=== PATIENT | male | born 1945 | race Caucasian/White ===

== ENCOUNTER 2019-10-31 17:19 | Inpatient (IN) ==
[2019-10-31] MEDS ORDERED: TICAGRELOR 90 MG TABLET ONE (17:20)
[2019-10-31] MEDS ORDERED: ENOXAPARIN 30 MG/0.3 ML SYRINGE ONE (17:20)
[2019-10-31] MEDS ORDERED: TICAGRELOR 90 MG TABLET PO STA (17:23)
[2019-10-31] MEDS ORDERED: ENOXAPARIN 100 MG/ML SYRINGE SUBCUT ONE (17:26)
[2019-10-31] MEDS ORDERED: ENOXAPARIN 60 MG/0.6 ML SYRINGE IV ONE (17:26)
[2019-10-31] MEDS ORDERED: ENOXAPARIN 100 MG/ML SYRINGE SUBCUT STA (17:29)
[2019-10-31] MEDS ORDERED: HYDROmorphone 2 MG/1 ML VIAL ONE (17:30)
[2019-10-31] MEDS ORDERED: MIDAZOLAM 2 MG/2 ML VIAL ONE (17:30)
[2019-10-31] MEDS ORDERED: LIDOCAINE 1% 20 ML VIAL ONE (17:30)
[2019-10-31 17:51] LABS: Basophils # 0.1 10*3/uL (0.0-0.2); Basophils % 0.3 % (0.0-0.8); Eosinophils # 0.1 10*3/uL (0.0-0.87); Eosinophils % 0.7 % (0.00-10.9); Hematocrit 45.7 VOL% (42.0-52.0); Hemoglobin 15.8 GM/DL (14.0-18.0); Immature Granulocytes % 0.6 %; Immature Granulocytes Absolute 0.08 #; Lymphocytes # 2.9 10*3/uL (1.4-4.0); Lymphocytes % 19.9 % (21.2-54.2); Mean Corpuscular HGB Conc 34.6 GM/DL (32-36); Mean Corpuscular Volume 89.3 FL (87-102); Mean Platelet Volume 10.2 FL (9.6-12.0); Neutrophils % 73.5 % (38.7-73.9); Platelet Count 253 T/CUMM (130-400); Red Blood Count 5.12 MC/CUMM (3.8-5.5); Red Cell Distribution Width 13.2 % (9.3-17.3); White Blood Count 14.5 T/CUMM (4-12)
[2019-10-31 17:57] LABS: INR 1.4; PT Patient Result 15.6 SECS (9.6-12.2); Partial Thromboplastin Time 30.6 SECS (20.8-36.0)
[2019-10-31 18:00] LABS: Calcium 9.1 MG/DL (8.5-10.1); Osmolality,Calculated 285.4 MOS/KG (273-304)
[2019-10-31] MEDS ORDERED: TIROFIBAN 5,000 MCG/100 ML PREMIX IV ONE (18:22)
[2019-10-31] MEDS ORDERED: ACETAMINOPHEN 325 MG TABLET PO PRN (18:26)
[2019-10-31] MEDS ORDERED: HYDROmorphone 2 MG/1 ML VIAL IV PRN (18:26)
[2019-10-31] MEDS ORDERED: ZALEPLON 5 MG CAPSULE PO PRN (18:26)
[2019-10-31] MEDS ORDERED: NITROGLYCERIN SL 0.4 MG TABLET SL PRN (18:26)
[2019-10-31] MEDS: TIROFIBAN 5,000 MCG/100 ML PREMIX IV SCH (18:27)
[2019-10-31] MEDS ORDERED: TIROFIBAN 5,000 MCG/100 ML PREMIX IV SCH (19:00)
[2019-10-31] MEDS ORDERED: carvediloL 6.25 MG TABLET PO SCH (21:00)
[2019-10-31] MEDS: INSULIN LISPRO 100 UNIT/ML SUBCUT SCH (21:15)
[2019-10-31] MEDS: SODIUM CHLORIDE 0.9% 1,000 ML IV SCH (21:30)
[2019-10-31] MEDS: TICAGRELOR 90 MG TABLET PO SCH (22:07)
[2019-10-31] MEDS: ROSUVASTATIN 20 MG TABLET PO SCH (22:08)
[2019-11-01] MEDS ORDERED: NITROGLYCERIN DRIP 50 MG/250 ML BOTTLE IV ONE (05:56)
[2019-11-01] MEDS ORDERED: FUROSEMIDE 40 MG/4 ML VIAL IV ONE (05:57)
[2019-11-01] MEDS ORDERED: FUROSEMIDE 40 MG/4 ML VIAL ONE (05:58)
[2019-11-01] MEDS ORDERED: NITROGLYCERIN DRIP 50 MG/250 ML BOTTLE IV PRN (05:59)
[2019-11-01 06:18] LABS: Basophils % 0.2 % (0.0-0.8); Eosinophils # 0.1 10*3/uL (0.0-0.87); Eosinophils % 0.9 % (0.00-10.9); Hematocrit 48.2 VOL% (42.0-52.0); Hemoglobin 16.1 GM/DL (14.0-18.0); Immature Granulocytes % 0.6 %; Immature Granulocytes Absolute 0.07 #; Lymphocytes # 2.5 10*3/uL (1.4-4.0); Lymphocytes % 19.8 % (21.2-54.2); Mean Corpuscular HGB Conc 33.4 GM/DL (32-36); Mean Corpuscular Volume 89.9 FL (87-102); Mean Platelet Volume 9.9 FL (9.6-12.0); Monocytes % 5.9 % (1.7-12.7); Neutrophils % 72.6 % (38.7-73.9); Platelet Count 233 T/CUMM (130-400); Red Blood Count 5.36 MC/CUMM (3.8-5.5); Red Cell Distribution Width 13.3 % (9.3-17.3); White Blood Count 12.7 T/CUMM (4-12)
[2019-11-01 07:04] LABS: CKMB % 14.4 %; Calcium 8.3 MG/DL (8.5-10.1); Osmolality,Calculated 285.1 MOS/KG (273-304)
[2019-11-01] MEDS: TIROFIBAN 5,000 MCG/100 ML PREMIX IV SCH ×2 (08:13→08:14)
[2019-11-01] MEDS: INSULIN LISPRO 100 UNIT/ML SUBCUT SCH ×4 (08:15→20:56)
[2019-11-01] MEDS: SODIUM CHLORIDE 0.9% 1,000 ML IV SCH (08:21)
[2019-11-01] MEDS: carvediloL 3.125 MG TABLET PO SCH ×2 (09:21→20:56)
[2019-11-01] MEDS: ASPIRIN EC 81 MG TABLET PO SCH (09:21)
[2019-11-01] MEDS: SACUBITRIL/VALSARTAN 49-51 MG TABLET PO SCH ×2 (09:21→20:55)
[2019-11-01] MEDS: TICAGRELOR 90 MG TABLET PO SCH ×2 (09:21→20:56)
[2019-11-01] MEDS: ROSUVASTATIN 20 MG TABLET PO SCH (09:21)
[2019-11-01] MEDS: ENOXAPARIN 40 MG/0.4 ML SYRINGE SUBCUT SCH (11:57)
[2019-11-01] MEDS: FUROSEMIDE 40 MG/4 ML VIAL IV SCH (16:41)
[2019-11-02] MEDS: INSULIN LISPRO 100 UNIT/ML SUBCUT SCH ×4 (08:10→20:16)
[2019-11-02] MEDS: FUROSEMIDE 40 MG/4 ML VIAL IV SCH ×2 (08:10→16:15)
[2019-11-02] MEDS: ROSUVASTATIN 20 MG TABLET PO SCH (09:30)
[2019-11-02] MEDS: carvediloL 3.125 MG TABLET PO SCH ×2 (09:31→20:16)
[2019-11-02] MEDS: ASPIRIN EC 81 MG TABLET PO SCH (09:31)
[2019-11-02] MEDS: SACUBITRIL/VALSARTAN 49-51 MG TABLET PO SCH ×2 (09:31→20:16)
[2019-11-02] MEDS: TICAGRELOR 90 MG TABLET PO SCH ×2 (09:31→20:16)
[2019-11-02 09:43] LABS: Basophils % 0.2 % (0.0-0.8); Eosinophils # 0.1 10*3/uL (0.0-0.87); Eosinophils % 1.4 % (0.00-10.9); Hematocrit 43.9 VOL% (42.0-52.0); Hemoglobin 15.2 GM/DL (14.0-18.0); Immature Granulocytes % 0.3 %; Immature Granulocytes Absolute 0.03 #; Lymphocytes # 1.9 10*3/uL (1.4-4.0); Lymphocytes % 21.1 % (21.2-54.2); Mean Corpuscular HGB Conc 34.6 GM/DL (32-36); Mean Corpuscular Volume 88.2 FL (87-102); Mean Platelet Volume 10.5 FL (9.6-12.0); Monocytes % 6.4 % (1.7-12.7); Neutrophils % 70.6 % (38.7-73.9); Red Blood Count 4.98 MC/CUMM (3.8-5.5); Red Cell Distribution Width 13.3 % (9.3-17.3)
[2019-11-02 09:47] LABS: Platelet Count 185 T/CUMM (130-400)
[2019-11-02 10:01] LABS: Calcium 8.1 MG/DL (8.5-10.1); Osmolality,Calculated 289.5 MOS/KG (273-304)
[2019-11-02] MEDS: ENOXAPARIN 40 MG/0.4 ML SYRINGE SUBCUT SCH (11:32)
[2019-11-02] MEDS ORDERED: metFORMIN 500 MG TABLET PO SCH (17:00)
[2019-11-02] MEDS ORDERED: POTASSIUM CHLORIDE RIDER 10 MEQ in PREMIX 1 EACH IV PRN (23:24)
[2019-11-02] MEDS ORDERED: MAGNESIUM SULF RIDER 2 GM in PREMIX 1 EACH IV PRN (23:24)
[2019-11-03 05:22] LABS: Basophils % 0.2 % (0.0-0.8); Eosinophils # 0.2 10*3/uL (0.0-0.87); Eosinophils % 2.1 % (0.00-10.9); Hematocrit 44.8 VOL% (42.0-52.0); Hemoglobin 15.4 GM/DL (14.0-18.0); Immature Granulocytes % 0.3 %; Immature Granulocytes Absolute 0.03 #; Lymphocytes # 2.8 10*3/uL (1.4-4.0); Lymphocytes % 28.5 % (21.2-54.2); Mean Corpuscular HGB Conc 34.4 GM/DL (32-36); Mean Corpuscular Volume 88.5 FL (87-102); Mean Platelet Volume 10.7 FL (9.6-12.0); Monocytes % 9.5 % (1.7-12.7); Neutrophils % 59.4 % (38.7-73.9); Platelet Count 192 T/CUMM (130-400); Red Blood Count 5.06 MC/CUMM (3.8-5.5); Red Cell Distribution Width 13.2 % (9.3-17.3); White Blood Count 9.7 T/CUMM (4-12)
[2019-11-03 05:51] LABS: Calcium 8.3 MG/DL (8.5-10.1); Osmolality,Calculated 289.3 MOS/KG (273-304)
[2019-11-03] MEDS ORDERED: BUPIVACAINE MPF 0.25% 30 ML VIAL ONE (06:51)
[2019-11-03] MEDS ORDERED: LIDOCAINE 1%/EPI INJ 20 ML VIAL ONE (06:51)
[2019-11-03] MEDS: INSULIN LISPRO 100 UNIT/ML SUBCUT SCH ×3 (07:12→16:19)
[2019-11-03] MEDS ORDERED: diphenhydrAMINE CAP 25 MG CAPSULE PO ONE (08:00)
[2019-11-03] MEDS ORDERED: DIAZEPAM 5 MG TABLET PO ONE (08:00)
[2019-11-03] MEDS ORDERED: VERAPAMIL 5 MG/2 ML VIAL ONE (09:15)
[2019-11-03] MEDS ORDERED: LIDOCAINE 1% 20 ML VIAL ONE (09:15)
[2019-11-03] MEDS ORDERED: NITROGLYCERIN DRIP 50 MG/250 ML BOTTLE IV ONE (09:15)
[2019-11-03] MEDS ORDERED: MIDAZOLAM 2 MG/2 ML VIAL ONE (09:28)
[2019-11-03] MEDS ORDERED: HYDROmorphone 2 MG/1 ML VIAL ONE (09:28)
[2019-11-03] MEDS ORDERED: ENOXAPARIN 60 MG/0.6 ML SYRINGE ONE (09:47)
[2019-11-03] MEDS ORDERED: TICAGRELOR 90 MG TABLET ONE (10:35)
[2019-11-03] MEDS ORDERED: ONDANSETRON 4 MG/2 ML VIAL IV PRN (10:38)
[2019-11-03] MEDS: carvediloL 3.125 MG TABLET PO SCH (13:18)
[2019-11-03] MEDS: TICAGRELOR 90 MG TABLET PO SCH (13:18)
[2019-11-03] MEDS: ROSUVASTATIN 20 MG TABLET PO SCH (13:18)
[2019-11-03] MEDS: SACUBITRIL/VALSARTAN 49-51 MG TABLET PO SCH (13:18)
[2019-11-03] MEDS: ASPIRIN EC 81 MG TABLET PO SCH (13:18)
[2019-11-03 15:35] VITALS: BP 117/69
== END 2019-11-03 16:48 | disposition home or self-care (01) | DRG 246 ==
LOC: EDUNIT# → EDBD → N.ED 17:19 → N.EDINP 17:33 → N.CC 18:51 → N.TELES 11-02 13:43
PROVIDERS: ADMIT Internal Medicine Cardiovascular Disease; ATTEND Internal Medicine Cardiovascular Disease
PROC: CLCCHCL (ICD-10-PCS; 2019-10-31 18:00)